=== PATIENT | male | born 1960 ===

== ENCOUNTER → 2019-06-28 | Outpatient (REF) | LOC: M LAB LCGH 15:01 | PROVIDERS: ATTEND Nurse Practitioner Family | DX: L91.8 Other hypertrophic disorders of the skin (principal); R23.8 Other skin changes ==

== ENCOUNTER → 2020-12-04 | Outpatient (REF) | payer OTHER ==
[2020-12-04 14:46] LABS: CREATININE, URINE 36.1 MG/DL; MALB URINE SIEMENS 48.7 MG/L; MAU/CREAT RATIO 134.9 MCG/MG (0.0-30.0)
== END ==
LOC: M LAB REF 12:52
PROVIDERS: ATTEND Nurse Practitioner Family
DX: E11.65 Type 2 diabetes mellitus with hyperglycemia (principal)